=== PATIENT | female | born 1960 | race Caucasian/White ===

== ENCOUNTER → 2022-09-23 | Outpatient (CLI) | payer OTHER ==
[~2022-09-23] MED LIST: AMOX500 PO; ERGO400 PO; Flonase 0.05% N16 GM; GLIP5 PO; HYDACE5 PO; LEVSOD75 PO; METF500 PO; METF500C PO; OMEP20ER; PRAHYD1AE TOP; ZYRTEC10 M1 PO
[2022-09-29 05:09] LABS: FREE TESTOSTERONE(DIRECT) 0.8 pg/mL (0.0-4.2)
== END ==
LOC: LAB SHORT 15:45 → LAB 15:45
PROVIDERS: Registered Nurse Community Health
DX: R68.82 Decreased libido (principal)
CPT/HCPCS: 84402; 84403